=== PATIENT | female | born 1985 ===

== ENCOUNTER 2023-08-16 11:58 | Day surgery (SDC) | payer MEDICAID ==
[~2023-08-16] VITALS: Ht 160 cm; Wt 91.7 kg
[2023-08-16] VITALS (8 sets, daily range): BP systolic 119–144; BP diastolic 77–99; PULSE 88–112; TEMP 97.2–99.6
[~2023-08-16 11:58] MED LIST: Famotidine 20 MG TAB PO SCH; HYDROmorphone 2 MG/1 ML VIAL IV PRN; Indocyanine Green 12.5 MG in Water For Injection,Sterile 2.5 ML IV ONE; LR 1,000 ML IV SCH; Meclizine 25 MG TAB PO SCH; NS 10 ML IV ONE; Ondansetron 4 MG/2 ML VIAL IV PRN; Ondansetron 4 MG/2 ML VIAL ONE; Rocuronium 50 MG/5 ML Multi-Dose VIAL ONE; dexAMETHasone 10 MG/ML VIAL ONE; fentaNYL 50 MCG/ML 2 ML VIAL IV PRN
[2023-08-16] MEDS ORDERED: Indocyanine Green 12.5 MG in Water For Injection,Sterile 2.5 ML IV ONE (12:30)
[2023-08-16] MEDS ORDERED: HCTZ12.5TAB PO (13:44)
[2023-08-16 13:45] LABS: BASO % 0.4 % (0.0-2.0); EOS % 0.3 % (0.0-4.0); GRAN # 5.5 K/mm3 (1.4-6.5); GRAN % 77.5 % (42.2-75.2); HEMATOCRIT 46.2 % (37.0-47.0); HEMOGLOBIN 15.5 g/dl (12.5-16.0); LYMPH # 0.5 K/mm3 (1.2-3.4); LYMPH % 7.3 % (20.0-51.0); MEAN CELL VOLUME 88 fl (80.0-100.0); MEAN CORPUSCULAR HEMOGLOBIN 29 pg (27-31); MEAN CORPUSCULAR HGB CONC 34 g/dl (33.0-37.0); MEAN PLATELET VOLUME 12.1 fl (7.4-10.4); MONO % 13.9 % (1.7-9.3); PLATELET COUNT 284 K/mm3 (130-400); RED BLOOD COUNT 5.27 M/mm3 (4.10-5.30); REDCELL DISTRIBUTION WIDTH-CV 12.6 % (11.5-14.5)
[2023-08-16] MEDS ORDERED: fentaNYL 50 MCG/ML 2 ML VIAL ONE ×2 (13:49→16:04)
[2023-08-16] MEDS ORDERED: Midazolam 2 MG/2 ML VIAL ONE (13:53)
[2023-08-16 14:13] LABS: ALBUMIN 4.7 gm/dL (3.5-5.0); BILIRUBIN,TOTAL 0.3 mg/dL (0.2-1.2); CALCIUM 9.5 mg/dL (8.4-10.2); CREATININE, serum 1.07 mg/dL (0.57-1.11); POTASSIUM 3.9 mmol/L (3.5-4.5); TOTAL PROTEIN 8.6 gm/dL (6.2-8.1)
[2023-08-16] MEDS ORDERED: Rocuronium 50 MG/5 ML Multi-Dose VIAL ONE (15:07)
[2023-08-16] MEDS ORDERED: Topical Skin Adhesive 1 EACH (1 ML) TOP ONE (15:19)
[2023-08-16] MEDS ORDERED: HYDROmorphone 2 MG/1 ML VIAL IV PRN (15:30)
[2023-08-16] MEDS ORDERED: fentaNYL 50 MCG/ML 2 ML VIAL IV PRN (15:30)
[2023-08-16] MEDS ORDERED: Ketorolac 30 MG/ML VIAL IV PRN (15:30)
[2023-08-16] MEDS ORDERED: Ondansetron 4 MG/2 ML VIAL IV PRN ×2 (15:30→16:15)
[2023-08-16] MEDS ORDERED: NORCO 325 MG-51 TAB PO (16:09)
[2023-08-16] MEDS ORDERED: MOTRIN 600600 MG/TAB PO (16:09)
[2023-08-16] MEDS ORDERED: Ibuprofen 600 MG TAB PO PRN (16:15)
[2023-08-16] MEDS ORDERED: Acetaminophen 325 MG TAB PO PRN (16:15)
--- NOTE | 2023-08-16 18:55 | NUR ---
1705 RETURNS TO ROOM 8 PER CART. DROWSY, AROUSES SPONTANEOUSLY. RESP UNLABORED. HOB ELEVATED 40 DEGREES. ABD SOFT. INCISION SITES X 4 INTACT. NO REDNESS OR DRAINAGE OBSERVED. AND CHILDREN HERE. REPORTS MODERATE ABD DISCOMFORT. 5/10. CALL LIGHT AT SIDE. 1710 COMMUNICATION WITH PATIENT WITH ASSISTANCE FROM AND CHILDREN IS DONE WITHOUT DIFFICULTY. VERY ADEQUATE, WITH RESPONSES AND QUESTIONS APPROPRIATE 1725 REPOSITIONS ON CART WITH ASSIST. HOB ELEVATED 60 DEGREES. TOLERATES PO WATER WITHOUT DIFFICULTY. EXPRESSES DESIRE TO CONTINUE COMMUNICATION WITHOUT ASSIST OF VOYCE. STATES UNDERSTANDING VOYCE CAN BE DIFFICULT SECONDARY TO LANGUAGE DIALECT 1740 DOZING. 1755 TOLERATES PO SALTINES WITHOUT NAUSEA. ABD SOFT. INCISIONS UNCHANGED. REPORTS MILD DISCOMFORT 1800 DISCHARGE INSTRUCTIONS THOROUGHLY REVIEWED WITH PATIENT, AND . CHILDREN ALSO VERY EAGER TO ENGAGE IN CONVERSATION. VERBALIZATION OF QUESTIONS OR CONCERNS HIGHLY ENCOURAGED THIS NURSE CONFIDENT IN SUCCESS OF EDUCATION AND INSTRUCTIONS. 1815 PATIENT DROWSY. LIGHTS DIMMED 1830 AWAKE, ALERT. CONVERSES WITH FAMILY. 1846 SITS ON EDGE OF BED, THEN AMBULATES TO BATHROOM WITH STANDBY ASSIST. DAUGHTER STAYS WITH PATIENT IN BATHROOM. PATIENT ADMITS TO VOIDING WITHOUT DIFFICULTY, THEN AMBULATES BACK, SITS ON EDGE OF CART. DRESSES WITH ASSIST FROM AND OR CONCERNS
== END 2023-08-16 18:55 | disposition home or self-care (01) ==
LOC: SDCO 11:58
PROVIDERS: Surgery
DX: K80.10 Calculus of gallbladder with chronic cholecystitis without obstruction (principal); I10 Essential (primary) hypertension
CPT/HCPCS: J0690; J1100; J1170; J1885; J2250; J2405; J2704; J3010; J7120